=== PATIENT | female | born 2000 | race Two or more races ===

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

== ENCOUNTER 2022-09-11 01:57 | Emergency (ER) | payer MEDICAID ==
[~2022-09-11] VITALS: Ht 165.1 cm; Wt 87.8 kg
[2022-09-11 03:15] VITALS: BP 129/82
[2022-09-11] MEDS ORDERED: PRED20TA2 PO (03:46)
[2022-09-11] MEDS ORDERED: IBUP-1454 PO (03:46)
[2022-09-11] MEDS ORDERED: METH-1181 PO (03:46)
[2022-09-11] MEDS ORDERED: METHOCARBAMOL 500 MG TAB PO ONE (04:00)
[2022-09-11] MEDS ORDERED: KETOROLAC TROMETH 60MG/2ML VIAL IM ONE (04:00)
== END 2022-09-11 04:17 | disposition home or self-care (01) ==
LOC: ER 01:57
DX: M54.12 Radiculopathy, cervical region (principal); Z79.1 Long term (current) use of non-steroidal anti-inflammatories (NSAID); Z79.899 Other long term (current) drug therapy
CPT/HCPCS: 76881; 96372; 99285; J1885

== ENCOUNTER 2024-05-19 01:42 | Emergency (ER) | payer MEDICAID ==
[~2024-05-19] VITALS: Ht 162.6 cm; Wt 86.6 kg
[~2024-05-19 01:42] MED LIST changes: +IBUP-1454 PO; +METH-1181 PO; +PRED20TA2 PO
[2024-05-19 02:09] VITALS: BP 132/92; PULSE 98; RESP 20; O2SAT 98
== END 2024-05-19 04:24 | disposition left against medical advice (07) ==
LOC: ER 01:42
DX: M79.622 Pain in left upper arm (principal); Z53.21 Procedure and treatment not carried out due to patient leaving prior to being seen by health care provider